=== PATIENT | male | born 1960 | race African-American/Black ===

== ENCOUNTER 2017-11-12 06:54 | Day surgery (SDC) | payer OTHER ==
[~2017-11-12] VITALS: Ht 182.9 cm; Wt 129.3 kg
[2017-11-12 07:49] VITALS: BP 136/81; PULSE 85; TEMP 98.1
[2017-11-12] MEDS ORDERED: XANAX 0.5MG0.5 MG PO (07:58)
[2017-11-12] MEDS ORDERED: ASPIRIN 81M81 MG/TA2 PO (07:59)
[2017-11-12] MEDS ORDERED: LIPITOR 80MG80 MG PO (07:59)
[2017-11-12] MEDS ORDERED: NOVOLOG 100U100 U/M1 SQ (08:01)
[2017-11-12] MEDS ORDERED: PRINIVIL20 MG PO (08:01)
[2017-11-12] MEDS ORDERED: GLUCOPHAGE500 MG/TAB PO (08:02)
[2017-11-12] MEDS ORDERED: LOPRESSOR100 MG PO (08:03)
[2017-11-12] MEDS ORDERED: MICATIN2% TP (08:04)
[2017-11-12] MEDS ORDERED: ADALAT CC30 MG PO (08:05)
[2017-11-12] MEDS ORDERED: OSTEO-BI-FLEX 21 TAB PO (08:06)
[2017-11-12] MEDS ORDERED: PRILOSEC 20MG20 MG PO (08:06)
[2017-11-12] MEDS ORDERED: LYRICA 75MG CAP75 MG PO (08:07)
[2017-11-12] MEDS ORDERED: VIAGRA100 M1 PO (08:08)
[2017-11-12] MEDS ORDERED: MULTIPLE VITAMI1 TA5 PO (08:09)
[2017-11-12] MEDS ORDERED: VITAMIN D3400 I1 PO (08:10)
[2017-11-12] MEDS ORDERED: VICTOZA6 MG/ML SQ (08:11)
[2017-11-12 08:55] VITALS: BP 142/80; PULSE 79; TEMP 97.5
[2017-11-12 09:10] VITALS: BP 139/78; PULSE 78
[2017-11-12 09:25] VITALS: BP 137/73; PULSE 79
== END 2017-11-12 09:59 | disposition home or self-care (01) ==
LOC: SDCO 06:54
DX: Z12.11 Encounter for screening for malignant neoplasm of colon (principal); K63.5 Polyp of colon; F32.9 Major depressive disorder, single episode, unspecified; F41.9 Anxiety disorder, unspecified; E78.00 Pure hypercholesterolemia, unspecified; E11.40 Type 2 diabetes mellitus with diabetic neuropathy, unspecified; D64.9 Anemia, unspecified; K21.9 Gastro-esophageal reflux disease without esophagitis; Z79.82 Long term (current) use of aspirin; Z79.4 Long term (current) use of insulin; Z87.891 Personal history of nicotine dependence
CPT/HCPCS: J2250; J2704; J3010; J7030